=== PATIENT | male | born 1995 | race African-American/Black ===

== ENCOUNTER 2021-08-17 07:20 | Emergency (ER) | payer SELFPAY ==
[2021-08-17 07:45] VITALS: BMI 30.3
[2021-08-17 07:50] VITALS: TEMP 97.8
[2021-08-17] MEDS ORDERED: ACETAMINOPHEN 500 MG TABLET (FP) PO ONE ×2 (07:54→16:55)
[2021-08-17] MEDS ORDERED: ALBUTEROL SO4 2.5/IPRATROPIUM 0.5 INH SOL 3 ML VIAL.NEB. NEB ONE ×2 (07:55→08:29)
[2021-08-17] MEDS ORDERED: ACETAMINOPHEN 325 MG TABLET (FP) ONE ×2 (08:29→17:18)
[2021-08-17 08:51] LABS: BASO % 0.2 % (0-2.0); EOS % 3.6 % (0-4.5); HEMOGLOBIN 14.2 GM/dL (11.7-16.9); MCH 29.2 pg (25.7-33.7); MCHC 33.1 g/dl (32.0-35.9); MEAN CELL VOLUME 88.1 fl (80-96); MEAN PLT VOLUME 10.7 fl (7.5-11.1); NEUT % 80.2 % (42.8-82.8); PLATELET COUNT 153 10^3/uL (134-434); RBC 4.88 M/mm3 (4.00-5.60); RDW 14.7 % (11.9-15.9); WHITE BLOOD COUNT 12.8 K/mm3 (4.0-10.0)
[2021-08-17] MEDS ORDERED: KETOROLAC TROMETHAMINE 30 MG/1 ML VIAL IVPUSH ONE (09:21)
[2021-08-17 09:29] LABS: CHLORIDE 105 mmol/L (98-107); SODIUM 140 mmol/L (136-145)
[2021-08-17 09:31] LABS: ANION GAP 6 MMOL/L (8-16); BLOOD UREA NITROGEN 11.8 mg/dL (7-18); CALCIUM 9.1 mg/dL (8.5-10.1); CO2 29 mmol/L (21-32); GLUCOSE,RANDOM 138 mg/dL (74-106)
[2021-08-17 09:32] LABS: ALBUMIN 3.9 g/dl (3.4-5.0)
[2021-08-17 09:35] LABS: SGOT/AST 18 U/L (15-37); SGPT/ALT 33 U/L (13-61)
[2021-08-17 09:36] LABS: BILIRUBIN,TOTAL 0.6 mg/dL (0.2-1); TOT PROT 7.3 g/dl (6.4-8.2)
[2021-08-17 09:37] LABS: ALK PHOS 67 U/L (45-117)
[2021-08-17] MEDS ORDERED: KETOROLAC TROMETHAMINE 30 MG/1 ML VIAL ONE (10:03)
[2021-08-17 17:54] VITALS: BP 122/61; PULSE 67
== END 2021-08-17 17:50 | disposition home or self-care (01) ==
LOC: JER 07:20
PROC: 3E033GC Introduction of Other Therapeutic Substance into Peripheral Vein, Percutaneous Approach (ICD-10-PCS; principal; 2021-08-17)
PROC: 3E0F7GC Introduction of Other Therapeutic Substance into Respiratory Tract, Via Natural or Artificial Opening (ICD-10-PCS; 2021-08-17)
DX: J98.2 Interstitial emphysema (principal)
CPT/HCPCS: 36415; 71046-TC-FY; 71275-TC; 80053; 82550; 84484; 85025; 85379; 93005; 93010; 99285-25; C9803; Q9967; U0003; U0005